=== PATIENT | male | born 1980 | race Caucasian/White ===

== ENCOUNTER 2021-09-27 10:34 | Emergency (ER) | payer MEDICAID ==
[~2021-09-27] VITALS: Ht 190.5 cm; Wt 93.2 kg
[2021-09-27 11:11] VITALS: BP 121/78
[2021-09-27 11:42] LABS: BASOPHILS # (AUTO) 0.1 X10'3 (0-0.2); BASOPHILS % (AUTO) 0.5 % (0-1); EOSINOPHILS % (AUTO) 0.1 % (0-6); HEMATOCRIT 48.7 % (42.0-52.0); HEMOGLOBIN 16.6 g/dl (14.0-17.9); LYMPHOCYTES # (AUTO) 2.2 X10'3 (1.1-4.8); LYMPHOCYTES % (AUTO) 10.3 % (21-51); MEAN CORPUSCULAR HEMOGLOBIN 29.9 PG (27.0-31.0); MEAN CORPUSCULAR HGB CONC 34.1 g/dL (33.0-36.5); MEAN CORPUSCULAR VOLUME 87.5 FL (78-98); MEAN PLATELET VOLUME 8.8 FL (7.4-10.4); MONOCYTES # (AUTO) 1.3 X10'3 (0-0.9); NEUTROPHILS % (AUTO) 83.1 % (42-75); PLATELET COUNT 353 X10'3 (140-440); RED BLOOD COUNT 5.56 X10'6 (4.70-6.10); RED CELL DISTRIBUTION WIDTH 12.9 % (11.5-14.5); WHITE BLOOD COUNT 21.6 X10'3 (4.5-11.0)
[2021-09-27 11:57] LABS: ALANINE AMINOTRANSFERASE 20 U/L (12-78); ALBUMIN 4.1 G/DL (3.4-5.0); ALBUMIN/GLOBULIN RATIO 1.2 (1.1-1.5); ALKALINE PHOSPHATASE 70 IU/L (46-116); ANION GAP 11 (8-16); ASPARTATE AMINO TRANSFERASE 12 U/L (10-37); BILIRUBIN,TOTAL 0.6 MG/DL (0.1-1.0); BLOOD UREA NITROGEN 18 MG/DL (7-18); BUN/CREATININE RATIO 20.7 (5.4-32.0); CHLORIDE 100 MMOL/L (99-107); CREATININE 0.87 MG/DL (0.60-1.10); GLUCOSE 127 MG/DL (70-104); LIPASE 205 U/L (73-393); POTASSIUM 3.3 MMOL/L (3.5-5.1); SODIUM 139 MMOL/L (135-145); TOTAL CARBON DIOXIDE 27.7 MMOL/L (24-32); TOTAL PROTEIN 7.6 G/DL (6.4-8.2); eGFR > 90 ML/MIN
[2021-09-27] MEDS ORDERED: normal saline 1000ML IV soln IVB ONE (15:25)
[2021-09-27] MEDS ORDERED: normal saline 1000ml 1,000 ML IV SCH (15:25)
[2021-09-27] MEDS ORDERED: ondansetron/PF 4mg/2ml inj IV ONE (15:55)
[2021-09-27] MEDS ORDERED: famotidine/PF 10 mg/ml inj IV ONE (15:55)
[2021-09-27] MEDS ORDERED: piperacillin/tazo 4.5gm/100ml 100 ML IV ONE (16:00)
[2021-09-27] MEDS ORDERED: piperacillin/tazo 4.5gm/100ml 100 ML IV SCH (16:00)
[2021-09-27 16:13] LABS: CLARITY,URINE CLEAR (Clear); COLOR,URINE YELLOW (Yellow); GLUCOSE, URINE NEGATIVE (Neg); KETONES,URINE NEGATIVE (Neg); LEUKOCYTE ESTERASE ,URINE NEGATIVE (Neg); NITRITES, URINE NEGATIVE (Neg); OCCULT BLOOD,URINE NEGATIVE (Neg); PH,URINE 7.5 (4.8-8.0); PROTEIN,URINE 30 mg/dl (Neg); UROBILINOGEN,URINE 0.2 E.U/dL (0.2-1.0)
[2021-09-27 16:17] LABS: UA COLLECTION TYPE CLN CATCH MIDSTREAM
[2021-09-27 16:19] LABS: BACTERIA,URINE NONE SEEN /HPF (Neg); MUCUS STRANDS FEW /LPF (Neg); RBC,URINE 0-2 /HPF (0-2); SQUAMOUS EPITHELIAL CELL,UR FEW /LPF (FEW); WBC,URINE 0-4 /HPF (0-4)
[2021-09-27] MEDS ORDERED: ONDA4TAB12 PO (16:51)
[2021-09-27] MEDS ORDERED: FAMO-128 PO (16:51)
== END 2021-09-27 17:00 | disposition home or self-care (01) ==
LOC: ER 10:34
DX: A08.4 Viral intestinal infection, unspecified (principal); E86.0 Dehydration; R11.10 Vomiting, unspecified; R19.7 Diarrhea, unspecified; R10.13 Epigastric pain; Z72.89 Other problems related to lifestyle; Z79.899 Other long term (current) drug therapy
CPT/HCPCS: 36415; 74176; 80053; 81001; 83605; 83690; 85025; 87040; 96361; 96365; 96375; 99284; J2405; J2543; J3490; J7030

== ENCOUNTER 2021-10-28 07:19 | Emergency (ER) | payer MEDICAID ==
[~2021-10-28] VITALS: Ht 190.5 cm; Wt 104.5 kg
[~2021-10-28 07:19] MED LIST: FAMO-128 PO; ONDA4TAB12 PO
[2021-10-28] MEDS ORDERED: HYDR28CR67 TOP (08:19)
[2021-10-28] MEDS: hydrocortisone 2.5% cream 28.4gm TP ONE (08:28)
--- NOTE | 2021-10-28 09:01 | NUR ---
Awaiting patient discharge paperwork from provider to d/c patient.
[2021-10-28] MEDS ORDERED: CEPH500C2 PO (09:35)
[2021-10-28 09:43] VITALS: BP 121/80
== END 2021-10-28 09:45 | disposition home or self-care (01) ==
LOC: ER 07:20
DX: L03.114 Cellulitis of left upper limb (principal); Z72.89 Other problems related to lifestyle; Z79.2 Long term (current) use of antibiotics; Z79.899 Other long term (current) drug therapy
CPT/HCPCS: 99283

== ENCOUNTER 2022-07-30 09:43 | Emergency (ER) | payer MEDICAID ==
[~2022-07-30] VITALS: Ht 190.5 cm; Wt 92.0 kg
[~2022-07-30 09:43] MED LIST changes: +HYDR28CR67 TOP
[2022-07-30] MEDS ORDERED: normal saline 1000ML IV soln IV ONE ×2 (10:55→13:50)
[2022-07-30] MEDS ORDERED: metoclopramide 5 mg/ml inj IV ONE (10:55)
[2022-07-30] MEDS ORDERED: LORazepam 2 mg/ml vial IV ONE (10:55)
[2022-07-30 12:14] LABS: BASOPHILS # (AUTO) 0.1 X10'3 (0-0.2); BASOPHILS % (AUTO) 0.6 % (0-1); EOSINOPHILS % (AUTO) 0.3 % (0-6); HEMATOCRIT 44.8 % (42.0-52.0); HEMOGLOBIN 14.9 g/dl (14.0-17.9); LYMPHOCYTES # (AUTO) 1.9 X10'3 (1.1-4.8); LYMPHOCYTES % (AUTO) 14.5 % (21-51); MEAN CORPUSCULAR HEMOGLOBIN 30.3 PG (27.0-31.0); MEAN CORPUSCULAR HGB CONC 33.2 g/dL (33.0-36.5); MEAN CORPUSCULAR VOLUME 91.2 FL (78-98); MEAN PLATELET VOLUME 9.3 FL (7.4-10.4); MONOCYTES % (AUTO) 7.5 % (2-12); NEUTROPHILS # (AUTO) 10.1 X10'3 (1.8-7.7); NEUTROPHILS % (AUTO) 77.1 % (42-75); PLATELET COUNT 305 X10'3 (140-440); RED BLOOD COUNT 4.91 X10'6 (4.70-6.10); RED CELL DISTRIBUTION WIDTH 14.1 % (11.5-14.5); WHITE BLOOD COUNT 13.1 X10'3 (4.5-11.0)
[2022-07-30 12:25] LABS: ALANINE AMINOTRANSFERASE 23 U/L (12-78); ALBUMIN 3.7 G/DL (3.4-5.0); ALBUMIN/GLOBULIN RATIO 1.2 (1.1-1.5); ALKALINE PHOSPHATASE 65 IU/L (46-116); ANION GAP 6 (8-16); ASPARTATE AMINO TRANSFERASE 24 U/L (10-37); BILIRUBIN,TOTAL 0.5 MG/DL (0.1-1.0); BLOOD UREA NITROGEN 19 MG/DL (7-18); BUN/CREATININE RATIO 21.8 (10.0-20.0); CALCIUM 8.7 MG/DL (8.5-10.1); CHLORIDE 103 MMOL/L (99-107); CREATININE 0.87 MG/DL (0.60-1.10); GLUCOSE 109 MG/DL (70-104); POTASSIUM 3.4 MMOL/L (3.5-5.1); SODIUM 139 MMOL/L (135-145); TOTAL CARBON DIOXIDE 29.6 MMOL/L (24-32); TOTAL PROTEIN 6.8 G/DL (6.4-8.2); eGFR > 90 ML/MIN
[2022-07-30 12:28] VITALS: BP 135/82
--- NOTE | 2022-07-30 13:20 | NUR ---
PT SLEEPING. NO EMESIS SINCE ARRIVING IN ER
[2022-07-30] MEDS ORDERED: NO HOME MEDS (15:59)
[2022-07-30] MEDS ORDERED: ondansetron/PF 4mg/2ml inj IV ONE (16:00)
[2022-07-30] MEDS ORDERED: ONDA8TAB13 PO (16:28)
== END 2022-07-30 16:40 | disposition home or self-care (01) ==
LOC: ER 09:43
DX: R11.15 Cyclical vomiting syndrome unrelated to migraine (principal); R10.9 Unspecified abdominal pain
CPT/HCPCS: 36415; 80053; 83605; 85025; 96361; 96374; 96375; 99284; J2060; J2405; J2765; J7030; J7040

== ENCOUNTER 2023-08-27 10:04 | Emergency (ER) | payer MEDICAID ==
[~2023-08-27] VITALS: Ht 190.5 cm; Wt 90.9 kg
[~2023-08-27 10:04] MED LIST changes: -FAMO-128 PO; -HYDR28CR67 TOP; +NO HOME MEDS; -ONDA4TAB12 PO; +ONDA8TAB13 PO
[2023-08-27 10:11] VITALS: TEMP 98.4; O2SAT 98
[2023-08-27 11:08] LABS: BASOPHILS # (AUTO) 0.1 X10'3 (0-0.2); MEAN PLATELET VOLUME 8.4 FL (7.4-10.4); MONOCYTES # (AUTO) 0.8 X10'3 (0-0.9); RED CELL DISTRIBUTION WIDTH 13.7 % (11.5-14.5)
[2023-08-27 11:09] LABS: BASOPHILS % (AUTO) 0.5 % (0-1); EOSINOPHILS % (AUTO) 0 % (0-6); HEMATOCRIT 48.3 % (42.0-52.0); HEMOGLOBIN 16.5 g/dl (14.0-17.9); LYMPHOCYTES % (AUTO) 11.1 % (21-51); MEAN CORPUSCULAR HGB CONC 34.1 g/dL (33.0-36.5); MEAN CORPUSCULAR VOLUME 90.9 FL (78-98); MONOCYTES % (AUTO) 4.5 % (2-12); NEUTROPHILS # (AUTO) 15.2 X10'3 (1.8-7.7); NEUTROPHILS % (AUTO) 83.9 % (42-75); PLATELET COUNT 385 X10'3 (140-440); RED BLOOD COUNT 5.32 X10'6 (4.70-6.10); WHITE BLOOD COUNT 18.1 X10'3 (4.5-11.0)
[2023-08-27 11:24] LABS: ALANINE AMINOTRANSFERASE 24 U/L (12-78); ALBUMIN 4.3 G/DL (3.4-5.0); ALKALINE PHOSPHATASE 80 IU/L (46-116); ANION GAP 14 (8-16); ASPARTATE AMINO TRANSFERASE 19 U/L (10-37); BILIRUBIN,TOTAL 0.7 MG/DL (0.1-1.0); BLOOD UREA NITROGEN 22 MG/DL (7-18); BUN/CREATININE RATIO 23.4 (10.0-20.0); CALCIUM 10.2 MG/DL (8.5-10.1); CHLORIDE 95 MMOL/L (99-107); CREATININE 0.94 MG/DL (0.60-1.10); GLUCOSE 136 MG/DL (70-104); LIPASE 50 U/L (16-77); POTASSIUM 3.6 MMOL/L (3.5-5.1); SODIUM 134 MMOL/L (135-145); TOTAL CARBON DIOXIDE 24.8 MMOL/L (24-32); TOTAL PROTEIN 8.5 G/DL (6.4-8.2); eCRCL 124 ML/MIN; eGFR 88 ML/MIN
[2023-08-27 14:18] VITALS: BP 148/97; PULSE 79; RESP 14
[2023-08-27] MEDS: normal saline 1000ML IV soln IVB ONE (14:25)
[2023-08-27] MEDS: haloperidol lactate 5mg/ml inj IM ONE (15:55)
[2023-08-27 17:14] LABS: BILIRUBIN,URINE NEGATIVE (Neg); COLOR,URINE YELLOW (Yellow); GLUCOSE, URINE NEGATIVE (Neg); KETONES,URINE NEGATIVE (Neg); LEUKOCYTE ESTERASE ,URINE SMALL (Neg); NITRITES, URINE NEGATIVE (Neg); OCCULT BLOOD,URINE TRACE-INTACT (Neg); PROTEIN,URINE NEGATIVE (Neg); UROBILINOGEN,URINE 0.2 E.U/dL (0.2-1.0)
[2023-08-27] MEDS ORDERED: METO10TA3 PO (17:30)
[2023-08-27 17:34] LABS: CLARITY,URINE SLIGHTLY CLOUDY (Clear); UA COLLECTION TYPE VOIDED
[2023-08-27 17:35] LABS: BACTERIA,URINE 1+ /HPF (Neg); SQUAMOUS EPITHELIAL CELL,UR FEW /LPF (FEW); WBC,URINE TNTC /HPF (0-4)
[2023-08-27 17:36] LABS: MUCUS STRANDS NONE SEEN /LPF (Neg); WBC CLUMPS,URINE FEW /HPF (NEGATIVE)
== END 2023-08-27 18:03 | disposition home or self-care (01) ==
LOC: ER 10:05
DX: R11.10 Vomiting, unspecified (principal); Z79.899 Other long term (current) drug therapy
CPT/HCPCS: 36415; 74176; 80053; 81001; 83690; 85025; 87088; 96360; 96372; 99285; J1630; J7030

== ENCOUNTER 2024-08-15 22:41 | Emergency (ER) | payer MEDICAID ==
[~2024-08-15] VITALS: Ht 190.5 cm; Wt 210.0 kg
[~2024-08-15 22:41] MED LIST changes: +ONDA-245 PO; -ONDA8TAB13 PO
[2024-08-15] MEDS: TETanus/Pertussis (Acell)/Diphther VAC/PF (Tdap-Adult) 0.5ml syringe IMVAC ONE (22:50)
[2024-08-15] MEDS ORDERED: AMOX-117 PO (23:38)
[2024-08-16] MEDS: amox tr/potassium clavulanate 875/125mg TAB PO ONE (00:10)
[2024-08-16 00:11] VITALS: BP 140/56; PULSE 81; RESP 14; TEMP 98; O2SAT 98
== END 2024-08-16 00:13 | disposition home or self-care (01) ==
LOC: ER 22:42
DX: S91.052A Open bite, left ankle, initial encounter (principal); W54.0XXA Bitten by dog, initial encounter; Y93.89 Activity, other specified; Y92.89 Other specified places as the place of occurrence of the external cause; Y99.8 Other external cause status
CPT/HCPCS: 99283; A6258